=== PATIENT | male | born 1950 | race Hispanic/Latino ===

== ENCOUNTER 2022-09-23 14:27 | Emergency (ER) | payer MEDICARE ==
[~2022-09-23] VITALS: Ht 162.6 cm; Wt 59.0 kg
[2022-09-23 14:50] LABS: BASOPHILS % (AUTO) 0.8 % (0.0-5.0); EOSINOPHILS % (AUTO) 1.2 % (0.0-8.0); HEMATOCRIT 40.5 % (42-54); LYMPHOCYTES % (AUTO) 27.8 % (21.0-51.0); MEAN CORPUSCULAR HEMOGLOBIN 30.6 pg (27.0-33.0); MEAN CORPUSCULAR HGB CONC 33.8 g/dL (32.0-36.0); MEAN CORPUSCULAR VOLUME 90.6 fL (79-99); MONOCYTES % (AUTO) 7.7 % (3.0-13.0); NEUTROPHILS % (AUTO) 62.1 % (40.0-77.0); PLATELET COUNT (AUTO) 258 K/uL (130-400); RED BLOOD CELL COUNT(AUTO) 4.47 MIL/uL (4.50-6.20); RED CELL DISTRIBUTION WIDTH 14.2 % (11.0-15.5); WHITE BLOOD COUNT (AUTO) 11.5 K/uL (4.8-10.8)
[2022-09-23 14:59] LABS: CREATININE 0.9 mg/dL (0.5-1.5); POTASSIUM 3.6 mmol/L (3.5-5.1)
[2022-09-23 15:08] LABS: ALBUMIN 3.5 g/dL (3.5-5.0); MAGNESIUM 1.9 mg/dL (1.80-2.40); TOTAL PROTEIN, SERUM 6.9 g/dL (6.0-8.3)
[2022-09-23] MEDS ORDERED: 0.9%NACL 1000ML 1,000 ML IV SCH (16:30)
[2022-09-23 18:25] LABS: APPEARANCE,URINE CLEAR (CLEAR); BILIRUBIN,URINE NEGATIVE (NEGATIVE); COLOR,URINE YELLOW (YELLOW); GLUCOSE, URINE (UA) NEGATIVE (NEGATIVE); KETONES,URINE 20 mg/dL (NEGATIVE); LEUKOCYTE ESTERASE ,URINE NEGATIVE Leu/uL (NEGATIVE); NITRATE,URINE NEGATIVE (NEGATIVE); OCCULT BLOOD,URINE NEGATIVE (NEGATIVE); PH,URINE 7.5 (5.0-8.0); PROTEIN,URINE 10 mg/dL (NEGATIVE); UROBILINOGEN,URINE 0.2 mg/dL (0.2-1.0)
[2022-09-23 18:31] LABS: BACTERIA,URINE RARE /HPF (None Seen); MUCUS,URINE FEW LPF (None Seen); RBC,URINE 0-1 /HPF (0-1); YEAST,URINE BUDDING FEW /HPF (None Seen)
[2022-09-23] MEDS ORDERED: HEPARIN 25,000 UNITS/250ML D5W 250 ML IV SCH (20:00)
[2022-09-23] MEDS ORDERED: HEPARIN 5,000 UNIT VIAL SQ PRN (20:00)
[2022-09-23] MEDS ORDERED: IOHEXOL 350 MG/ML 100ML INFUS..BTL IV ONE (20:28)
[2022-09-23 22:10] VITALS: BP 134/73
== END 2022-09-23 22:10 | disposition home or self-care (01) ==
LOC: EDH 14:27
DX: R55 Syncope and collapse (principal); I25.10 Atherosclerotic heart disease of native coronary artery without angina pectoris; I50.9 Heart failure, unspecified; G40.909 Epilepsy, unspecified, not intractable, without status epilepticus; Z79.899 Other long term (current) drug therapy
CPT/HCPCS: 99285; 70450; 71045; 83735; 84484 ×2; 80053; 83880; 85025; 85378; 85730; 83605; 81001; 36415; 71275; 93005; Q9967

== ENCOUNTER 2022-12-07 20:22 | Emergency (ER) | payer MEDICARE ==
[~2022-12-07] VITALS: Ht 162.6 cm; Wt 61.2 kg
[2022-12-07] MEDS ORDERED: SOLU-MEDROL 125MG VIAL ONE (20:43)
[2022-12-07] MEDS ORDERED: DiphenhydrAMINE HCL 50 MG/ML VIAL ONE (20:43)
[2022-12-07] MEDS ORDERED: FAMOTIDINE 20MG VIAL IV ONE ×2 (20:44→21:00)
[2022-12-07] MEDS ORDERED: DiphenhydrAMINE HCL 50 MG/ML VIAL IV ONE (21:00)
[2022-12-07] MEDS ORDERED: SOLU-MEDROL 125MG VIAL IVP ONE (21:00)
[2022-12-07] MEDS ORDERED: 0.9%NACL 1000ML 1,000 ML IV ONE (21:00)
[2022-12-07 22:18] VITALS: BP 135/60
[2022-12-07] MEDS ORDERED: FAMO40TA75 PO (22:30)
[2022-12-07] MEDS ORDERED: HYDR-3421 PO (22:30)
[2022-12-07] MEDS ORDERED: EPIN0.3P3 IJ (22:35)
[2022-12-07] MEDS ORDERED: METH4TAB3 PO (22:35)
== END 2022-12-07 22:44 | disposition home or self-care (01) ==
LOC: EDH 20:22
DX: L50.0 Allergic urticaria (principal); I25.10 Atherosclerotic heart disease of native coronary artery without angina pectoris; I11.0 Hypertensive heart disease with heart failure; I50.9 Heart failure, unspecified; F03.90 Unspecified dementia, unspecified severity, without behavioral disturbance, psychotic disturbance, mood disturbance, and anxiety; F17.210 Nicotine dependence, cigarettes, uncomplicated; Z79.52 Long term (current) use of systemic steroids; Z95.5 Presence of coronary angioplasty implant and graft; Z79.899 Other long term (current) drug therapy
CPT/HCPCS: 99284; 96374; 96375; 96361; J1200; J3490; J7030; J2930